=== PATIENT | female | born 1950 | race Caucasian/White ===

== ENCOUNTER 2017-05-02 10:07 | Day surgery (SDC) | payer MEDICARE ==
[~2017-05-02] VITALS: Ht 165.1 cm; Wt 81.5 kg
[~2017-05-02 10:07] MED LIST: 0.9% Sodium Chloride 1,000 ML IV SCH; CALC-890 PO; CHOL100045 PO; FOLI0.4T2 PO; MAGN250T29 PO; MULT-1018 PO; NPR500T PO; OMEG-38 PO; PRIMROSE OIL PO; PYR50 PO; Sodium Chloride LOK Flush 10 mL Syringe IV PRN; fentaNYL-PF 50 mCg/mL 2 mL Inj IVPUSH PRN
[2017-05-02 10:41] VITALS: BP 124/71; PULSE 62; RESP 16; O2SAT 96
[2017-05-02 11:59] VITALS: BP 113/68; PULSE 67; RESP 12; O2SAT 93
[2017-05-02 12:15] VITALS: BP 112/67; PULSE 62; RESP 12; O2SAT 93
[2017-05-02 12:22] VITALS: BP 127/73; PULSE 67; RESP 12; O2SAT 97
--- NOTE | 2017-05-02 18:34 | ENDO ---
[address] [address] ENDOSCOPY PROCEDURE PATIENT: RADHA MICHAEL : 1950 MR#: [id number] ADMIT: 05/02/2017 JOB ID: [id number] PROCEDURE: Colonoscopy. INDICATION: Screening. Patient's ASA classification is one. Mallampati score is two. MEDICATIONS: Versed 7 mg, fentanyl 125 mcg. INSTRUMENT USED: PCF H 180 AL PREPARATION QUALITY: Fair. PROCEDURE DETAILS: After informed consent was obtained, the patient was brought into the GI suite where she was placed on oxygen via nasal cannula and monitored with continuous pulse oximeter, telemetry, and blood pressure monitoring. A time-out was performed, then she was placed in the left lateral decubitus position and medications were administered for sedation. Digital rectal exam was performed, which revealed external hemorrhoids. The colonoscope was then inserted into the rectum and advanced under direct visualization to the cecum, which was identified by the presence of the ileocecal valve and appendiceal orifice. Once the cecum was reached, the colonoscope was withdrawn back into the rectum as the mucosa and lumen were examined. In the rectum, retroflexion was performed. Following retroflexion, the remaining air in the rectum was suctioned and the procedure was completed. FINDINGS: 1. In the cecum, ascending, and transverse colon there were a few aphthous appearing ulcers that were millimeters in size. The ulcer in the cecum and transverse colon was biopsied. 2. A few scattered diverticula were seen in the ascending colon. 3. Severe diverticulosis was noted in the sigmoid colon. 4. Retroflexed views in the rectum revealed moderate-sized internal hemorrhoids. IMPRESSION: 1. Scattered aphthous ulcers from cecum to transverse colon. 2. Scattered diverticula in the ascending colon. 3. Severe diverticulosis in the left side of the colon. 4. Internal and external hemorrhoids. RECOMMENDATIONS: 1. Fiber rich diet. 2. Followup in GI Clinic in 2-4 weeks. COMPLICATIONS: None. ESTIMATED BLOOD LOSS: Less than 5 mL.
--- NOTE | 2017-05-06 16:26 | PATH ---
SURGICAL PATHOLOGY Attending Physician:Chantelle Robertson CASE STATUS: Signed Out PATIENT NAME: RADHA MICHAEL PID: [id number] : 1950 DATE COLLECTED:05/02/2017 20:18 SPECIMEN: 1: Colon, Biopsy 2: Colon, Biopsy CLINICAL HISTORY: 1). CECUM ULCER 2). TRANSVERSE COLON ULCER FINAL DIAGNOSIS: 1.CECAL ULCER, BIOPSY: COLONIC MUCOSA WITH SINGLE CRYPT ABSCESS AND REACTIVE EPITHELIAL CHANGES CONSISTENT WITH ADJACENT ULCER. Negative for granulomata, dysplasia, or malignancy. 2.TRANSVERSE COLON ULCER, BIOPSY: COLONIC MUCOSA WITH PROMINENT BENIGN LYMPHOID AGGREGATE AND FOCAL MINIMAL ACTIVE COLITIS. Negative for granulomata, dysplasia, or malignancy. ICD10 K52.9 NOTE: Additional step-sections are examined in each part. GROSS DESCRIPTION: The specimen is received in two formalin filled containers labeled with the patient's name. 1). The specimen is labeled "cecum ulcer" and consists of two portions of tissue which aggregate to 0.3 x 0.2 x 0.2 CM. The specimen is entirely submitted in cassette 1A. 2). The specimen is labeled "transverse colon ulcer" and consists of a 0.3 x 0.3 x 0.2 CM portion of tissue which is entirely submitted in cassette 2A. 05/02/2017DC MICRO DESCRIPTION: See diagnosis. ICD-9 CODES: CPT CODES: 1: 01903 2: 04576 Electronically Signed Out Saul Byrd MD, Ph.D. [facility] Pathology [facility] [address], [place] [address] Technical component performed at [facility], [facility] [address], [place], [address]
== END 2017-05-02 23:59 | disposition home or self-care (01) ==
LOC: END 10:07
PROVIDERS: ATTEND Internal Medicine Gastroenterology
DX: Z12.11 Encounter for screening for malignant neoplasm of colon (principal); K52.9 Noninfective gastroenteritis and colitis, unspecified; K63.3 Ulcer of intestine; K64.8 Other hemorrhoids; K57.30 Diverticulosis of large intestine without perforation or abscess without bleeding; R41.3 Other amnesia; M81.0 Age-related osteoporosis without current pathological fracture